=== PATIENT | male | born 1935 | race Caucasian/White ===

== ENCOUNTER 2017-11-13 12:58 | Emergency (ER) | payer MEDICARE, OTHER ==
[~2017-11-13] VITALS: Ht 172.7 cm; Wt 81.6 kg
[2017-11-13 13:00] VITALS: BP 105/66
[2017-11-13 13:31] LABS: BASOPHILS % (AUTO) 0.2 % (0.0-2.0); EOSINOPHILS % (AUTO) 0.4 % (0.0-3.0); HEMATOCRIT 47.5 % (42.0-52.0); HEMOGLOBIN 16.3 G/DL (14.2-18.0); LYMPHOCYTES % (AUTO) 9.7 % (20.0-45.0); MEAN CORPUSCULAR VOLUME 82 FL (80-99); MONOCYTES % (AUTO) 5.6 % (1.0-10.0); PLATELET COUNT 212 K/UL (150-450); RED BLOOD COUNT 5.78 M/UL (4.70-6.10); RED CELL DISTRIBUTION WIDTH 12.6 % (11.6-14.8); WHITE BLOOD COUNT 14.7 K/UL (4.8-10.8)
[2017-11-13 13:40] LABS: ANION GAP 8 mmol/L (5-15); BLOOD UREA NITROGEN 19 mg/dL (7-18); CALCIUM 8.8 MG/DL (8.5-10.1); CARBON DIOXIDE 28 MMOL/L (21-32); CHLORIDE 104 MMOL/L (98-107); CREATININE 1.2 MG/DL (0.55-1.30); POTASSIUM 3.8 MMOL/L (3.5-5.1); SODIUM 140 MMOL/L (136-145)
[2017-11-13 13:51] LABS: ALANINE AMINOTRANSFERASE 31 U/L (12-78); ALBUMIN 3.5 G/DL (3.4-5.0); ALBUMIN/GLOBULIN RATIO 1.1 (1.0-2.7); ALKALINE PHOSPHATASE 133 U/L (46-116); ASPARTATE AMINO TRANSFERASE 21 U/L (15-37); BILIRUBIN,TOTAL 1.1 MG/DL (0.2-1.0)
[2017-11-13 13:54] LABS: BILIRUBIN,DIRECT 0.3 MG/DL (0.0-0.3)
--- NOTE | 2017-11-13 14:06 | Emergency Room Report ---
History of Present Illness General Chief Complaint: Chest Pain Source: EMS Present Illness HPI This patient c/o mod substernal cp pressure mostly present since 10 am until my evaluation 1245 pm. It seems to have abated possibly related to sl ntg patient self-administered and also per 911. He also took aspirin today. + nausea and emesis x1, no diaphoresis no radiation of pain. Known CAD and stents but that was 10-15 years ago and generally does not have cp. Allergies: Coded Allergies: No Known Allergies (Unverified , 11/13/17) Nursing Documentation-PMH Past Medical History: No History, Except For Hx Cardiac Problems: Yes - 2 STENTS Hx Hypertension: Yes Hx Diabetes: Yes Review of Systems Constitutional: Reports: no symptoms Eye: Reports: no symptoms ENT: Reports: no symptoms Respiratory: Reports: no symptoms Cardiovascular: Reports: chest pain Gastrointestinal: Reports: no symptoms Genitourinary: Reports: no symptoms Musculoskeletal: Reports: no symptoms Skin: Reports: no symptoms Psychiatric: Reports: no symptoms Neurological: Reports: no symptoms Endocrine: Reports: no symptoms Hematologic/Lymphatic: Reports: no symptoms Allergic: Reports: no symptoms Physical Exam Vital Signs Date Time Temp Pulse Resp B/P (MAP) Pulse Ox O2 Delivery O2 Flow Rate FiO2 11/13/17 13:00 98.3 73 20 105/66 98 Nasal Cannula 2.0 98.3 Sp02 EP Interpretation: reviewed, normal General Appearance: normal inspection, well appearing, no apparent distress, alert, GCS 15, non-toxic Head: normocephalic, atraumatic Eyes: bilateral eye normal inspection, bilateral eye PERRL, bilateral eye EOMI ENT: normal ENT inspection, hearing grossly normal, normal pharynx, no angioedema, normal voice, moist mucus membranes Neck: normal inspection, full range of motion, supple, no meningismus, no bony tend Respiratory: normal inspection, lungs clear, normal breath sounds, no rhonchi, no respiratory distress, no retraction, no accessory muscle use, no wheezing Cardiovascular #1: normal inspection, regular rate, rhythm, no edema Gastrointestinal: normal inspection, normal bowel sounds, non tender, soft, no mass, non-distended Musculoskeletal: gait/station normal, normal range of motion Neurologic: normal inspection, alert, oriented x3, responsive, motor strength/ tone normal Psychiatric: normal inspection, judgement/insight normal, memory normal Suicide Risk Assessment: Suicidal Ideation: No Had intent to initiate attempt: No Pt's plan for suicide attempt: No Has means to complete attempt: No Skin: normal inspection, normal color, no rash, warm/dry Medical Decision Making Diagnostic Impression: Primary Impression: Chest pain Additional Impression: ACS (acute coronary syndrome) ER Course EMERGENT LABS AND DIAGNOSTIC STUDIES: Lab Results were reviewed by me and interpreted as below. Unremarkable 12-lead EKG Interpretation by Nettie Patterson MD: Normal Sinus Rhythm at 78 beats per minute Normal axis QT not prolonged Nonspecific ST-T wave changes Overall impression is normal sinus rhythm Radiology Results as interpreted by Radiology below were reviewed by Nettie Patterson MD : CXR: NAD Nursing Notes Reviewed Previous Medical Records were requested via the electronic health record. EMERGENCY DEPARTMENT COURSE / MEDICAL DECISION MAKING: The patient was placed on a site monitor, continuous pulse oximetry, and tests as ordered. The patient was treated with aspirin per 911. My differential diagnosis included: ACS, myocardial infarction, angina, pericarditis, aortic dissection, pleurisy, pleural effusion, pneumothorax, pneumonia, PE, costochondritis, PUD, gastritis, GERD, muscular. I observed the patient for a period of time and the patient felt better. On reassessment, the patient's history, vital signs, exam and studies were all reviewed. I will re-evaluate for further workup and recommendation based on the diagnostic testing results and how the patient responds to treatment. My initial impression was: Atypical chest pain. My final impression was the same. I am not worried about PE, since the patient was not complaining of SOB, and did not have hypoxia, hemoptysis, tachycardia or syncope. Chest x-ray was negative with no signs of acute disease. She was advised to arrive back to the ED for new or worsening symptoms. This patient presents with signs and symptoms potentially concerning for coronary ischemia. While it is not possible to be 100% accurate about the etiology of the patient's chest pain at this time (after an ED evaluation.) The patient's NICK Score is: 3 HEART 6 NICK: age 65 years or older 1 at least 3 risk factors for coronary artery disease 0 prior coronary stenosis of 50% or more 1 ST-segment deviation on ECG at presentation 0 at least two anginal events in prior 24 hours 0 use of aspirin in the prior seven days 1 elevated serum cardiac biomarkers 0 HEART: (0-2 for five variables) History 2 EKG (ST depr = 1mm) 0 Age (45-65) 2 Risk Factors (1-2) 2 Troponin (1-2x) 0 EKG Diagnostic Results EKG Time: 14:04 Rate: normal Rhythm: NSR ST Segments: no acute changes Other Impression nsr 88, lad, lvh, old septal infarct Rhythm Strip Diag. Results Rhythm Strip Time: 14:04 EP Interpretation: yes Rate: nsr 75 Rhythm: NSR Chest X-Ray Diagnostic Results Chest X-Ray Diagnostic Results : Chest X-Ray Ordered: Yes # of Views/Limited/Complete: 1 View Indication: Chest Pain EP Interpretation: Yes Interpretation: no consolidation, no effusion, no pneumothorax, no acute cardiopulmonary disease Last Vital Signs Date Time Temp Pulse Resp B/P (MAP) Pulse Ox O2 Delivery O2 Flow Rate FiO2 11/13/17 13:07 Nasal Cannula 2.0 11/13/17 13:02 98.3 90 20 123/78 95 98.2 Status: improved Disposition: ADMITTED INPATIENT Referrals: NOT CHOSEN IPA/,REFERRING (PCP) Baldomero Patterson M.D. Nov 13, 2017 14:06
[2017-11-13 15:09] VITALS: BP 115/67
--- NOTE | 2017-11-13 16:03 | Diagnostic Imaging Report ---
Indication: Chest pain Technique: One view of the chest Comparison: None Findings: There is a retrocardiac hiatal hernia. The heart is enlarged. There is minimal atelectasis at the left lung base The lungs and pleural spaces are otherwise clear. There is a small osteolytic lesion in the mid shaft right clavicle Impression: No acute pulmonary process 10 mm osteolytic lesion within the right clavicle. The possibility of neoplasm should be considered. Correlate with clinical history. Further evaluation with dedicated clavicle radiographs and possibly bone scan recommended. This was discussed by phone with Dr. Carroll in the emergency room at the time of interpretation Hiatal hernia
--- NOTE | 2017-11-21 00:45 | Cardiology Report ---
APPROVED REPORT EKG Measurement Heart [id number] Normal sinus rhythm Left axis deviation Moderate voltage criteria for LVH, may be normal variant Cannot rule out Septal infarct, age undetermined Abnormal ECG
== END 2017-11-13 15:15 | disposition left against medical advice (07) ==
LOC: EDBD 12:58 → EMR 13:32
DX: I24.9 Acute ischemic heart disease, unspecified (principal); E11.9 Type 2 diabetes mellitus without complications; I10 Essential (primary) hypertension; Z95.5 Presence of coronary angioplasty implant and graft
CPT/HCPCS: 36415; 71045; 80053; 82248; 83880; 84484; 85025; 85610; 93005; 99283